=== PATIENT | female | born 1945 | race Caucasian/White ===

== ENCOUNTER 2022-02-10 16:33 | Inpatient (IN) | payer MEDICARE, BC, SELFPAY ==
[2022-02-10 20:43] VITALS: BMI 24.4
[2022-02-10 20:50] VITALS: PULSE 99; RESP 20; TEMP 37.2; O2SAT 96
[2022-02-10] MEDS: LIDOCAINE 1% MDV 50 ML INJ (21:20)
[2022-02-10 21:25] LABS: Add Manual Diff / Slide Review NO; Basophils Absolute Auto 0 /uL (0-100); Basophils Percent Auto 0.5 % (0-2); Eosinophils Absolute Auto 100 /uL (0-450); Eosinophils Percent Auto 2.2 % (2-4); Hematocrit 36.6 % (36-46); Hemoglobin 12.8 g/dL (12.0-16.0); Lymphocytes Absolute Auto 1200 /uL (1100-4500); Lymphocytes Percent Auto 17.6 % (25-40); Mean Corpuscular HGB Conc 34.9 % (30-36); Mean Corpuscular Hemoglobin 31.7 PG (26-34); Mean Corpuscular Volume 90.9 fL (80-100); Monocytes Absolute Auto 600 /uL (0-900); Monocytes Percent Auto 8.8 % (3-14); Neutrophils Absolute Auto 4800 /uL (1500-7000); Neutrophils Percent Auto 70.9 % (50-75); Platelet Count 232 X10^3/uL (150-400); Red Blood Cell Count 4.03 X10^6/uL (4.0-5.2); Red Cell Distribution Width 15.3 % (11.6-14.8); White Blood Cell Count 6.8 X10^3/uL (4.5-11.0)
[2022-02-10 21:35] LABS: BUN Creatinine Ratio 19.7 (6-22); Blood Urea Nitrogen 15 mg/dL (7-17); Calcium 9.6 mg/dL (8.4-10.2); Carbon Dioxide 28 mmol/L (22-32); Chloride 104 mmol/L (98-107); Estimated Glomerular Filt Rate > 60 mL/min (>60); Glucose 108 mg/dL (80-110); HEMOLYSIS < 15 (0-50); Sodium 139 mmol/L (137-145)
[2022-02-10] MEDS: SODIUM CHLORIDE 0.9% FLUSH 10 ML IV (21:53)
[2022-02-10] MEDS: HYDROMORPHONE 0.5 MG INJ 1 MG (21:53)
[2022-02-10] MEDS: ONDANSETRON 4 MG ODT PO (22:49)
--- NOTE | 2022-02-10 22:56 | P.HP_ITS ---
History of Present Illness History of Present Illness Chief complaint: Infected port Narrative: Ms. Meraz has stage III lung cancer. She had a port placed for chemotherapy. It was done at [facility]. She had been explaining to her oncologists now for several weeks that something was wrong with it. She felt that it was getting red. Over the last few days the area got extremely red and started to d rain some yellowish material. It has been pretty painful. She was transferred from [place] this evening so that I could remove the port. I discussed her case with the physician over there and they had consulted with infectious disease specialist who recommended 24 hours of vancomycin and cefepime and following up on blood cultures which were taken in Tuesday. I also sent the catheter for culture. Patient History Family & Social History Social History: household members spouse Prior Living Arrangements House Safety & Behavioral: Feels Safe in Current Yes Environment Been Physically Hurt or No Threatened By a Person Tobacco & Substance use: Smoking Status Former smoker alcohol intake current alcohol intake frequency 0-2 drinks per day Substance Use Type does not use Meds Home Medications and Allergies Home Medications Medication Instructions Recorded Confirmed Type alprazolam 0.5 mg tablet 0.5 mg PRN PRN Anxiety 02/10/22 02/10/22 History cyclosporine 0.05 % eye drops in a drp 02/10/22 History dropperette (Restasis) olanzapine 5 mg tablet mg 02/10/22 History prochlorperazine maleate 10 mg mg 02/10/22 History tablet Allergies Allergy/AdvReac Type Severity Reaction Status Date / Time bee pollen Allergy Verified 02/10/22 21:04 mushroom Allergy Verified 02/10/22 21:04 Penicillins Allergy Verified 02/10/22 21:04 Sulfa (Sulfonamide Allergy Verified 02/10/22 21:04 Antibiotics) Exam Vital Signs (past 8 hours): - 02/10/22 20:50 Temperature 98.9 F Pulse Rate 99 H Respiratory Rate 20 Pulse Oximetry 96 Oxygen Flow Rate 0 Oxygen Flow Rate 0 Const General: cooperative, healthy appearing and comfortable [facility] Head: normal to inspection Chest Other: The left chest has a port a cath in place the tubing is palpable coming over the clavicle and entering the left jugular vein. The area overlying the catheter button is red and there is a small area of open skin with liquid drainage media lly. Resp Effort & Inspection: normal respiratory effort and able to speak in complete sentences Cardio Pulses: radial pulses present Objective Labs Result Diagrams: 02/10/22 21:05 02/10/22 21:05 Labs: Laboratory Results - last 24 hr 02/10/22 02/10/22 21:05 21:05 WBC 6.8 RBC 4.03 Hgb 12.8 Hct 36.6 MCV 90.9 MCH 31.7 MCHC 34.9 RDW 15.3 H Plt Count 232 Neut % (Auto) 70.9 Lymph % (Auto) 17.[address] [place] % (Auto) 8.8 Eos % (Auto) 2.2 Baso % (Auto) 0.5 Neut # (Auto) 4800 Lymph # (Auto) 1200 [place] # (Auto) 600 Eos # (Auto) 100 Baso # (Auto) 0 Sodium 139 Potassium 4.0 Chloride 104 Carbon Dioxide 28 BUN 15 Creatinine 0.76 Estimated GFR > 60 BUN/Creatinine Ratio 19.7 Glucose 108 Calcium 9.6 Assessment & Plan Assessment and plan (1) Infection due to Port-A-Cath: Status: Acute (2) Bloodstream infection due to Port-A-Cath: Status: Acute Plan I explained to the patient the risks benefits and alternatives of removing the port. At the bedside under local anesthesia. She understands and would like to proceed. She is somewhat anxious. She also is having a lot of pain at the port so we will treat her pain as needed and give her IV antibiotics as recommended by Infectious Disease. The catheter will be sent for culture we will follow up the cultures and tailor the antibiotic treatment appropriately. A general diet, saline lock insert, DVT prophylaxis,continue home meds. Time Spent With Patient Critical Care time: I spent a total of [] minutes of critical care time on this patient's care today; this time is exclusive of procedural time.
[2022-02-10 23:00] VITALS: BP 167/75
--- NOTE | 2022-02-10 23:23 | PM.PROC.1 ---
Procedures Date/Time Date of procedure: 02/10/22 Time of procedure: 21:00 General Procedure description: Port-a-cath removal. Done at bedside. 1% lidocaine infused after area was prepped and drapped. Iodine skin prep. Sterile gloves and instruments used. 15 blade scalpel incision through the scar site. Carried down with scissors. Sutures were cut. The port button was adhered and stuck. There was erythema, fluid and bleeding around the device. Some purulent material was expressed. Patient required 1 mg IV Dilaudid to tolerate the dissection. After the button portion was freed, pressure was placed on the left jugular vein, patient in trendelenberg position, and held for 5 minutes by the clock. Meanwhile a two 3-0 vicryl sutures were used to close the space and loosely interrupted 4-0 prolene sutures were used on skin incase this infected wound would need to be opened for drainage. The area was dressed with a pressure dressing in hope to prevent fluid build up in the cavity. Overall patient tolerated the procedure well, there were no complications. Complications: none
--- NOTE | 2022-02-10 23:48 | PC.ADMIT ---
[address] M[address] Zaragoza Admission Note: The patient,Char Baires,76 y/o, was given written information regarding hospital policies, unit procedures and contact persons. Patient's smoking status: Former smoker. Vital Signs - 8 hr 02/10/22 20:50 02/10/22 23:00 02/10/22 23:00 Temperature 98.9 F Pulse Rate 99 H Respiratory Rate 20 Blood Pressure 167/75 H Pulse Oximetry 96 Oxygen Delivery Method Room Air Oxygen Flow Rate 0 Patient admitted to room 219; direct admit from [facility]. Ambulated to room and assisted into gown and into bed. Dr. Abbott notified of admission and came to see patient and removed port from left chest (see her procedure note). Patient is alert and oriented. Breath sounds CTA with RA sat of 96%. HRR but has elevated BP of 167/75 possibly high related to pain during procedure. Following procedure patient was up to bathroom and standing at sink to brush her teeth and suddenly became nauseated and vomited some undigested food. Medicated with po Zofran and shortly after vomited an additional 100cc. BT present and abdomen is soft and non tender. Denies dysuria. Independent with mobility. Was medicated during procedure with IV Dilaudid and now following procedure states pain is 3/10. Area over port site is now covered with gauze dressing/Tegaderm. Declines use of SCD's. Fall risk score is moderate but patient verbalizes she will call for assist if feeling weak, dizzy, shaky or unsteady when getting out of bed. Oriented to call light and bed controls.
[2022-02-11] MEDS: IBUPROFEN 400 MG TABLET PO ×6 (00:01→20:38)
[2022-02-11] MEDS: CEFEPIME 1 GM in SODIUM CHLORIDE 0.9% 100 ML IV ×2 (00:01→13:08)
[2022-02-11 07:00] VITALS: BP 145/69; PULSE 81; RESP 18; TEMP 36.1; O2SAT 95
[2022-02-11] MEDS: SODIUM CHLORIDE 0.9% FLUSH 10 ML IV ×3 (08:25→23:01)
--- NOTE | 2022-02-11 09:05 | CM.DANOTE ---
DCP Assessment: Payor confirmed: Medicare and BCBS PCP Confirmed: MD Vicki Pt is a 76 y.o. F who was transferred to [place] from [place] for an infected port a cath. Dr. Abbott removed the port last night and discussed her case with ID specialist and they recommended 24 hours of abx. Catheter from PAC was sent for culture. DCP met with pt this morning to discuss discharge needs. Pt sitting up in bed. DCP introduced self and role. Pt states she lives in [place] with her , Harry. Pt also stated that they have a condo in [place] were they also stay when she needs to go down for her chemo treatments. Pt states she has not had any infusions for the last three weeks. Pt states her is in [place] currently and they plan to return to [place] once pt is ready for discharge. Pt is fairly independent at baseline. Pt denies resources at this time. Whiteboard updated. Instructed to call. Pt thankful for discussion. P: Awaiting further plan from MD. Anticipate discharge home via spouse POV to [place] when medically stable. DCP to continue to follow case. Kiki Jason RN/KELLENP Discharge Planning/Care Management CM Discharge Assessment Start: 02/11/22 09:03 Freq: Status: Active Protocol: Document 02/11/22 09:03 LEXA (Rec: 02/11/22 09:04 LEXA [id number]) Discharge Planning Assessment Assigned Corporate Account Executive Kiki Jason RN/AMADOU Advance Directives? No History Provided By Patient Prior Living Arrangements House Household Members spouse Type of transporation used prior to Relies on Others admit Independent with ADL's Yes Is patient alert and oriented? Yes DME Already Rented / Owned FWW / Walker Discharge Plan Home Transportation Arrangement Spouse POV Referrals Initiated None needed Additional Comment At this time. Whiteboard Updated in Patient Room with Yes name and ext. # of Corporate Account Executive Comment Instructed to call Review Status In Process Please Provide Date Initial DC 02/11/22 Assessment Was Performed Next Review Type Continued Stay Review
--- NOTE | 2022-02-11 11:54 | PM.PN.1 ---
Subjective Subjective Interval history: Ms. Meraz is feeling really well this morning. She has no questions or complaints. She has some itching over the wound. It is still dressed with the original dressing which is not been leaking. Exam Vital Signs (past 8 hours): - 02/11/22 07:00 Temperature 96.9 F L Pulse Rate 81 Respiratory Rate 18 Blood Pressure 145/69 H Pulse Oximetry 95 Oxygen Flow Rate 0 Oxygen Delivery Method Room Air Oxygen Flow Rate 0 Narrative Exam Narrative: She is awake alert oriented pleasant and in no acute distress The wound on her left anterior chest from the Port-A-Cath removal site is clean and dry it is dressed with a Tegaderm and gauze Objective Labs Result Diagrams: 02/10/22 21:05 02/10/22 21:05 Labs: Laboratory Results - last 24 hr 02/10/22 02/10/22 21:05 21:05 WBC 6.8 RBC 4.03 Hgb 12.8 Hct 36.6 MCV 90.9 MCH 31.7 MCHC 34.9 RDW 15.3 H Plt Count 232 Neut % (Auto) 70.9 Lymph % (Auto) 17.6 L [place] % (Auto) 8.8 Eos % (Auto) 2.2 Baso % (Auto) 0.5 Neut # (Auto) 4800 Lymph # (Auto) 1200 [place] # (Auto) 600 Eos # (Auto) 100 Baso # (Auto) 0 Sodium 139 Potassium 4.0 Chloride 104 Carbon Dioxide 28 BUN 15 Creatinine 0.76 Estimated GFR > 60 BUN/Creatinine Ratio 19.7 Glucose 108 Calcium 9.6 PFSH Social History household members: spouse Smoking Status: Former smoker alcohol intake: current Assessment & Plan Assessment and plan (1) Bloodstream infection due to Port-A-Cath: Status: Acute (2) Infection due to Port-A-Cath: Status: Acute Assessment & Plan narrative: At this time I think Ms. Meraz is doing very well. She has no leukocytosis but she does have a left shift. She has been afebrile. She is volume resuscitated. And on IV antibiotics for a catheter related infection. I have received infectious disease instructions via the physician at [place] to give 24 hours of vancomycin and cefepime. This period of time will be up late tonight. I would like to obtain further recommendations for what to do thereafter additionally her blood cultures were taken at Tuesday. So I will need to find the results from that. I have sent her catheter tip for culture here with no results yet. I hope that she can be discharged home on an oral antibiotic regimen tomorrow. DVT prophylaxis. Time Spent With Patient Critical Care time: I spent a total of [] minutes of critical care time on this patient's care today; this time is exclusive of procedural time.
[2022-02-11] MEDS: VANCOMYCIN 750 MG/150 ML PIGGYBACK 150 MG IV ×2 (11:56→23:00)
[2022-02-11] MEDS: ENOXAPARIN 40 MG/0.4 ML SYRINGE SUBCUT (13:08)
[2022-02-11 19:55] VITALS: BP 177/75; PULSE 89; RESP 18; TEMP 36.7; O2SAT 95
[2022-02-11] MEDS: diphenhydrAMINE 25 MG TABLET PO (22:59)
[2022-02-12] MEDS: MAG HYDROX/ALUM/SIMETH 30 ML UDC PO ×2 (00:02→11:14)
[2022-02-12] MEDS: CEFEPIME 1 GM in SODIUM CHLORIDE 0.9% 100 ML IV ×2 (00:28→12:25)
--- NOTE | 2022-02-12 00:54 | PC.NURSE ---
C/O abdominal discomfort, states I'm feeling bloated, must be all the medicine I'm taking. Dr. Berrios notified Maalox ordered & administered. Will cont. POC & monitor.
[2022-02-12 09:16] VITALS: BP 155/73; PULSE 96; RESP 18; TEMP 36.6; O2SAT 95
[2022-02-12] MEDS: VANCOMYCIN 750 MG/150 ML PIGGYBACK 150 MG IV (11:13)
[2022-02-12] MEDS: SODIUM CHLORIDE 0.9% FLUSH 10 ML IV ×2 (11:14→21:10)
[2022-02-12] MEDS: diphenhydrAMINE 25 MG TABLET PO (11:14)
[2022-02-12] MEDS: ACETAMINOPHEN 325 MG TABLET 650 MG PO (11:14)
--- NOTE | 2022-02-12 19:32 | PM.PN.1 ---
Subjective Subjective Interval history: Doing fine. Very eager for discharge home. Feeling anxious and stir crazy. Doesn't want to miss the democrat tomorrow night in Tuesday. Wound is itching. Exam Vital Signs (past 8 hours): Oxygen Delivery Method Room Air Oxygen Flow Rate 0 Narrative Exam Narrative: alert and pleasant. wound is clean, dry. sutures in place. decreased erythema around site. There is some eccymosis. no drainage or fluid build up. Objective Labs Result Diagrams: 02/10/22 21:05 02/10/22 21:05 [facility] Social History household members: spouse Smoking Status: Former smoker alcohol intake: current Assessment & Plan Assessment and plan (1) Bloodstream infection due to Port-A-Cath: Status: Acute (2) Infection due to Port-A-Cath: Status: Acute Plan discussed cultre results from tuesday with ID Dr. Rudolph. The blood cultures have not grown but the wound culture resulted pseudomnas. IF this is sensitive to flouroquinolones, she may be discharge on oral medication for 2 weeks. If not, she will need IV antibiotics for 2 weeks adn this will need to be arranged. Dr. Rudolph graciously has offered to contact me over the weekend with any new results. Time Spent With Patient Critical Care time: I spent a total of [] minutes of critical care time on this patient's care today; this time is exclusive of procedural time.
[2022-02-12 20:00] VITALS: BP 161/74; PULSE 87; RESP 18; TEMP 37.2; O2SAT 95
[2022-02-12] MEDS: IBUPROFEN 400 MG TABLET PO (21:09)
[2022-02-12 23:32] LABS: Vancomycin Trough 9.6 ug/mL (10-20)
[2022-02-13] MEDS: VANCOMYCIN 750 MG/150 ML PIGGYBACK 150 MG IV ×2 (00:13→11:03)
[2022-02-13] MEDS: IBUPROFEN 400 MG TABLET PO ×3 (00:18→12:31)
[2022-02-13] MEDS: MAG HYDROX/ALUM/SIMETH 30 ML UDC PO (00:18)
[2022-02-13] MEDS: diphenhydrAMINE 25 MG TABLET PO ×2 (00:18→11:03)
[2022-02-13] MEDS: CEFEPIME 1 GM in SODIUM CHLORIDE 0.9% 100 ML IV ×2 (01:16→12:21)
[2022-02-13 02:59] LABS: Vancomycin Peak 20.9 ug/mL (20-40)
[2022-02-13 07:44] VITALS: BP 135/62; PULSE 82; RESP 18; TEMP 36.8; O2SAT 96
--- NOTE | 2022-02-13 08:18 | PC.NURSE ---
Addendum entered by Marquise Cary R.N. 02/13/22 14:18: Pt d/c to care of . IV d/c'd intact. Pt states understanding of instructions. Original Note: Pt alert and oriented. offers no overt c/o other than poor sleep through the night. Pt resettled with bed covers and allowed to sleep.
[2022-02-13] MEDS: SODIUM CHLORIDE 0.9% FLUSH 10 ML IV (10:00)
[2022-02-13 10:04] VITALS: BP 144/73; PULSE 90; RESP 19; TEMP 36.2; O2SAT 97
--- NOTE | 2022-02-13 13:36 | CM.DPC ---
DCP Cont: Per Dr. Abbott, pt is discharging home today on oral antibiotics. Pt has car here and [place] ferry pass. Team aware. No needs from DCP. Kiki Jason RN/DCP
--- NOTE | 2022-02-13 18:52 | P.DS_ITS ---
History of Present Illness History of Present Illness Chief complaint: Infected port Narrative: Ms. Meraz has stage III lung cancer. She had a port placed for chemotherapy. It was done at [facility]. She had been explaining to her oncologists now for several weeks that something was wrong with it. She felt that it was getting red. Over the last few days the area got extremely red and started to d rain some yellowish material. It has been pretty painful. She was transferred from [place] this evening so that I could remove the port. I discussed her case with the physician over there and they had consulted with infectious disease specialist who recommended 24 hours of vancomycin and cefepime and following up on blood cultures which were taken in [place]. I also sent the catheter for culture. Discharge Providers Provider Date of admission: 02/10/22 16:33 Discharge Date: 02/13/22 Primary care physician: Mark Cohen MD Discharge provider: Nicolasa Abbott MD Summary Hospital Course Discharge Diagnosis: Infected port a cath, blood stream infection. Hospital Course: After the port removal, patient did well. I was able to contact Dr. Rudolph, infectious disease, who though she'd not seen the patient, was very helpful in giving recommendations. Patient received 24 hours of Vancomycin and IV Cefepime. Her blood cultures were still negative after that time (reported to me by Dr. Rudolph, since I don't have access to the EMR of [place]). But, per report, a culture from the wound did grow Pseudomonas which was sensitive to ciprofloxacin. Patient was discharged home with a 2 week course of PO Cipro 750 mg Q12H (a paper script was given). She was instructed that she may leave the wound open to air, shower/pat dry, and will need sutures removed in 7-10 days. She was instructed to return for care if she had fever, chill, or drainage.increasing redness at the wound site. Status at Discharge Cognitive/behavioral status at discharge: at baseline, oriented Functional status at discharge: independent ambulation Overall status at discharge: patient is back to baseline Time Spent with Patient Time spent: Less than 30 minutes Exam Vital Signs (past 8 hours): Oxygen Delivery Method Room Air Oxygen Flow Rate 0 Narrative Exam Narrative: Wound is clean and dry. Some eccymosis. Minimal erythema, no drainage. Interrupted Prolene sutures in place. Objective Labs Result Diagrams: 02/10/22 21:05 02/10/22 21:05 Labs: Laboratory Results - last 24 hr 02/12/22 02/13/22 22:56 02:30 Vancomycin Peak 20.9 Vancomycin Trough 9.6 L PFSH Social History household members: spouse Smoking Status: Former smoker alcohol intake: current Discharge Assessment & Plan Assessment and Plan Plan of Treatment: see summary Discharge Plan Discharge Plan Patient Disposition: Home Discharge orders & Medications Prescriptions: Continued cyclosporine [Restasis] 0.05 % dropperette 1 drp EYE-BOTH BID alprazolam 0.5 mg tablet 0.5 mg PRN PRN (Reason: Anxiety) olanzapine 5 mg tablet 5 mg PO PRN PRN (Reason: Anxiety) prochlorperazine maleate 10 mg tablet 10 mg PO PRN PRN (Reason: Nausea) Label Comments: take 1 tablet by mouth every 6 hours if needed for nausea and vomiting Follow up/Referrals: Mark Cohen MD [Primary Care Provider] - Nicolasa Abbott MD [Physician] - (Need to have stitches removed in 7-10 days. May call office to schedule or f/u with provider of choice. ) Diet/Activity/Treatments Diet: Diet as Tolerated Skin/Wound/Dressing Care Report to your healthcare provider any signs of infection, such as:: chills, fever, night sweats, increased pain, unusual drainage and unusual redness Discharge Data Primary Care Provider: Mark Cohen
== END 2022-02-13 14:10 | disposition home or self-care (01) | DRG 316 ==
PROVIDERS: Admitting Provider Surgery; PCP Student in an Organized Health Care Education/Training Program; Referring Provider Surgery; Visit Provider Surgery
DX: T80.211A Bloodstream infection due to central venous catheter, initial encounter (principal); B96.5 Pseudomonas (aeruginosa) (mallei) (pseudomallei) as the cause of diseases classified elsewhere; F41.9 Anxiety disorder, unspecified; Z87.891 Personal history of nicotine dependence; Z20.822 Contact with and (suspected) exposure to COVID-19
CPT/HCPCS: 36415; 36590; 80048; 80202; 85025; 87070; 87077; 87186; 87205; 99221; J0692; J1170; J1650